=== PATIENT | male | born 1935 | race Caucasian/White ===

== ENCOUNTER → 2024-08-27 15:08 | Outpatient (REF) | payer MEDICARE, SELFPAY | LOC: RCS 15:08 | PROVIDERS: ATTENDING PHYSICIAN Internal Medicine Cardiovascular Disease | DX: I45.10 Unspecified right bundle-branch block (principal); I34.0 Nonrheumatic mitral (valve) insufficiency | CPT/HCPCS: 93306 ==

== ENCOUNTER → 2025-03-30 14:35 | Outpatient (REF) | payer MEDICARE, SELFPAY | LOC: RCS 14:35 | PROVIDERS: ATTENDING PHYSICIAN Internal Medicine Cardiovascular Disease; FAMILY PHYSICIAN Nurse Practitioner Family | DX: I45.10 Unspecified right bundle-branch block (principal); I48.21 Permanent atrial fibrillation | CPT/HCPCS: 93306 ==

== ENCOUNTER 2025-09-02 09:12 | Day surgery (SDC) | payer MEDICARE, SELFPAY | END 2025-09-02 10:00 | disposition home or self-care (01) | LOC: CATH 09:12 | PROVIDERS: ATTENDING PHYSICIAN Internal Medicine Cardiovascular Disease; FAMILY PHYSICIAN Physician Assistant; OTHER PHYSICIAN Internal Medicine Cardiovascular Disease | DX: I13.0 Hypertensive heart and chronic kidney disease with heart failure and stage 1 through stage 4 chronic kidney disease, or unspecified chronic kidney disease (principal); Z53.09 Procedure and treatment not carried out because of other contraindication; I45.10 Unspecified right bundle-branch block; N18.31 Chronic kidney disease, stage 3a; I50.32 Chronic diastolic (congestive) heart failure; Z21 Asymptomatic human immunodeficiency virus [HIV] infection status; Z79.82 Long term (current) use of aspirin; Z79.899 Other long term (current) drug therapy | CPT/HCPCS: 93312 ==

== ENCOUNTER → 2025-09-08 16:33 | Outpatient (REF) | payer BC, MEDICARE, SELFPAY | LOC: RCS 16:33 | PROVIDERS: ATTENDING PHYSICIAN Internal Medicine Cardiovascular Disease | DX: I45.10 Unspecified right bundle-branch block (principal); I34.0 Nonrheumatic mitral (valve) insufficiency | CPT/HCPCS: 93306 ==